=== PATIENT | male | born 2005 | race Caucasian/White ===

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

== ENCOUNTER 2025-06-24 12:08 | Outpatient (REF) | payer MEDICAID, SELFPAY ==
--- NOTE | ~2025-06-24 | XR_ITS ---
EXAMINATION: XR LUMBOSACRAL SPINE CLINICAL INFORMATION: pain at paraspinous muscles COMPARISON: None available. TECHNIQUE: Three views of the lumbosacral spine. FINDINGS: There are vestigial ribs at T12. There is a transitional L5 vertebral body that appears sacralized on the right. Vertebral body height and alignment is preserved. Disc spaces are preserved. No degenerative changes are fractures are evident. XR/XR lumbar spine 2-3V IMPRESSION: Transitional L5 segment. Electronically signed by: John Winters MD 06/24/2025 01:21 PM EDT
--- OUTSIDE RECORDS SUMMARY | 2025-06-24 11:30 | XMS_ITS | Encounter Summary ---
Author Organization [email or web address] Address [address] [place] [address] 7 [place] [address] Care Team Providers Care C++ Professor Name Role Phone Dodie Griffith MD Primary Care Provider [phone] Reason for Visit * Reason Comments sick visit Back pain Encounter Details Date Type Department Care Team (Late st Contact Info) Description 06/24/2025 11:30 AM EDT Office Visit [facility] [address] [place], [place] [phone] Dodie Griffith MD [address] [place] [address] Chronic midline thoracic back pain (Primary Dx) Social History Tobacco Use Types Packs/Day Years Used Date Smoking Tobacco: Never Smokeless Tobacco: Never Alcohol Use Standard Drinks/Week Comments Never 0 (1 standard drink = 0.6 oz pur e alcohol) Depression Answer Date Recorded Patient Health Questionnaire-9 Score 1 11/11/2023 Patient Health Questionnaire-9 Score 1 11/11/2023 Last PHQ-9: Questionnaire Data Not on file 0 11/11/2023 Depression Answer Date Recorded Patient Health Questionnaire-2 Score 0 11/11/2023 Sex and Gender Information Value Date Recorded Sex Assigned at Male 11/11/2023 9:09 AM EST Legal Sex Male 9:06 AM EST Gender Identity Male 11/11/2023 9:12 AM EST Sexual Orientation Straight 06/21/2025 9: 52 AM EDT documented as of this encounter Last Filed Vital Signs Vital Sign Reading Time Taken Comments Blood Pressure 102/60 06/24/2025 11:56 AM EDT Pulse 100 06/24/2025 11:56 AM EDT Temperature 35.9 C (96.7 F) 06/24/2025 11:56 AM EDT Respiratory Rate 20 06/24/2025 11:56 AM EDT Oxygen Saturation - - Inhaled Oxygen Concentration - - Weight 61.4 kg (135 lb 6.4 oz) 06/24/2025 11:56 AM EDT Height 170.2 cm (5' 7 ) 06/24/2025 11:56 AM EDT Body Mass Index 21.21 06/24/2025 11:56 AM EDT documented in this encounter Plan of Treatment Scheduled Orders Name Type Priority Associated Diagnoses Orde r Schedule XR Lumbar Spine 2-3 Views Imaging Routine Chronic midline thoracic back pain Expected: 06/24/2025, Expires: 06/24/2026 documented as of this encounter Visit Diagnoses Diagnosis Chronic midline thoracic back pain- Primary documented in this encounter Additional Health Concerns Assessment Noted Time PHQ-9 Depression Total Score: 1 11/11/19 24 12:13 PM EST documented as of this encounter Care Teams C++ Professor Relationship Specialty Start Date End Date Dodie Griffith MD [address] [place] [address] PCP - General Family Medicine 11/11/23 documented as of this encounter
--- OUTSIDE RECORDS SUMMARY | 2025-06-24 12:54 | XMS_ITS | Encounter Summary ---
Author Organization [employer] Address [address] [place] [address] 7 [place] [address] Care Team Providers Care Lift Driver Name Role Phone Dodie Griffith MD Primary Care Provider [phone] Encounter Details Date Type Department Care Team (Latest Contact Info) Description 06/24/2025 Travel Social History Tobacco Use Types Packs/Day Years [...] AM EDT documented as of this encounter Plan of Treatment Not on file documented as of this encounter Visit Diagnoses Not on filedocumented in this encounter Additional Health Concerns Assessment Noted Time PHQ-9 Depression Total Score: 1 11/11/19 24 12:13 PM EST documented as of this encounter Care Teams Lift Driver Relationship Specialty Start Date End Date Dodie Griffith MD [address] [place] [address] PCP - General Family Medicine 11/11/23 documented as of this encounter
--- OUTSIDE RECORDS SUMMARY | 2025-06-24 12:54 | XMS_ITS | Encounter Summary ---
Author Organization [employer] Address [address] [place] [address] 7 [place] [address] Care Team Providers Care Ornamental Ironworking Supervisor Name Role Phone Dodie Griffith MD Primary Care Provider [phone] Encounter Details Date Type Department Care Team (Latest Contact Info) Description 06/21/2025 Travel Social History Tobacco Use Types Packs/Day [...] documented as of this encounter Care Teams Ornamental Ironworking Supervisor Relationship Specialty Start Date End Date Dodie Griffith MD [address] [place] [address] PCP - General Family Medicine 11/11/23 documented as of this encounter
--- OUTSIDE RECORDS SUMMARY | 2025-06-24 12:54 | XMS_ITS | Clinical Summary ---
Author Organization [employer] Address [address] [place] [address] [place] [address] Care Team Providers Care Seam Checker Name Role Phone Dodie Griffith MD Primary Care Provider Allergies No known active allergies Medications No known medications Active Problems Problem Noted Date Diagnosed Date Encounter for immunization 11/11/2023 Encounter for well child check without abnormal findings 11/11/2023 Chronic midline thoracic back pain 11/11/2023 Encounters Date Type Department Care Team Description 06/24/2025 11:30 AM EDT Office Visit [facility] [address] [place] [phone] Dodie Griffith MD Chronic midline thoracic back pain (Primary Dx) 06/24/2025 Travel 06/21/2025 Travel 06/20/2025 Telephone [facility] [address] [place] [phone] Dodie Griffith MD Nurse Triage 05/31/[address] [address] Dodie Griffith MD Nurse Triage from Last 3 Months Immunizations Immunization Administration Dates Next Due BCG 2005 DTaP 04/13/2007, 6,03/22/2006,01/07 Hep A, ped/adol, 2 dose 11/11/2023 Hep B, Adolescent or Pediatric 01/07/2006,2005,2005 IPV 04/13/2007, 6,2005,11/20 Influenza, Unspecified 07/26/2023 MMR 11/11/2023,07/14/2007 Measles 01/19/2006 Meningococcal Polysaccharide A,C,Y,W-135 TT Conjugate 11/11/2023 OPV, Trivalent 07/17/2023 Pfizer Covid-19 Vaccine 12+ 11/11/2023 Tdap 11/11/2023 Social History Tobacco Use Types Packs/Day Years Used Date Smoking Tobacco: Never Smokeless Tobacco: Never Tobacco Cessation:Counseling Given: No Alcohol Use Standard Drinks/Week Comments Never 0 [...] Orientation Straight 06/21/2025 9: 52 AM EDT Last Filed Vital Signs Vital Sign Reading [...] Mass Index 21.21 06/24/2025 11:56 AM EDT Plan of Treatment Health Maintenance Due Date Last Done Comments Chlamydia and Gonorrhea Screening 2005 HIV Screening 2005 SDOH Screening 2005 Hepatitis B Vaccines (4 of 4 - 4-dose series) 04/26/2006 01/07/2006, 2005, 2005 Fluoride Varnish 06/27/2006 Alcohol/Substance Use Screening 2017 Family Planning (PISQ) 2020 HPV Vaccines (1 - Male 3-dose series) 2020 Meningococcal B Vaccine (1 of 2 - Standard) 2021 Hepatitis C Screening 2023 Hepatitis A Vaccines (2 of 2 - 2-dose series) 05/11/2024 11/11/2023 COVID-19 Vaccine (2 - season) 2024 11/11/2023 Depression Screening 11/11/2024 11/11/2023, 11/11/19 24 Tobacco Screening 11/11/2024 11/11/2023 Influenza Vaccine (#1) 2025 07/26/2023 Disability Screening 06/21/2026 06/21/2025 DTaP/Tdap/Td Vaccines (6 - Td or Tdap) 11/11/2033 11/11/2023, 04/13/2007, 05/08/2006, Additional history exists Zoster Vaccines (1 of 2) 2055 RSV Patients and Patients Aged 60 years or older (1 - 1-dose 75+ series) 2080 IPV Vaccines Completed 07/17/2023, 03/27, 01/20/2006, Additional history exists MMR Vaccines Completed 11/11/2023, 07/14/2007 Meningococcal Vaccine Completed 11/11/2023 HIB Vaccines Aged Out No longer eligi ble based on patient's age to complete this topic Pneumococcal Vaccine: Pediatrics (0 to 5 Years) and At-Risk Patients (6 to 49) Years Aged Out No longer eligible based on patient's age to complete this topic RSV under 20 months Aged Out No longe r eligible based on patient's age to complete this topic Rotavirus Vaccines Aged Out No longer eligible based on patient's age to complete this topic Varicella Vaccines Discontinued Insurance [facility] [employer] Care Teams Seam Checker Relationship Specialty Start Date End Date Dodie Griffith MD [address] [place] [address] PCP - General Family Medicine 11/11/23
--- OUTSIDE RECORDS SUMMARY | 2025-06-24 12:54 | XMS_ITS | Encounter Summary ---
Author Organization [employer] Address [address] [place] [address] [address], [place] [address] Care Team Providers Care Java Developer Name Role Phone Dodie Griffith MD Primary Care Provider [phone] Reason for Visit * Reason Onset Date Comments Nurse Triage 06/20/2025 Encounter Details Date Type Department Care Team ([facility] st Contact Info) Description 06/20/2025 Telephone [facility] [address] [place], [place] [phone] Dodie Griffith MD [address] [place], [place] [phone] Nurse Triage Social History Tobacco Use Types Packs/Day Years [...] AM EDT documented as of this encounter Miscellaneous Notes * Telephone Encounter - Chloe Worrell RN - 06/20/2025 11:25 AM EDT Call returned to [facility] Malcolmkings Mendez to triage below at [phone]. Reports having ongoing chronic back pain. Pt alessia any use of OTC pain relievers or PT. Pt dnies any leg pain, numbness or worsening. Pt wants PCPfollow up. Pt advised that needs to make sure MH is C3 Standard. Pt booked with PCP. Protocol Used: Back Pain (Adult) Protocol-Based Disposition: See in Office or Video Visit within 2 Weeks Future Appointments Date Time Provider Department Center 06/24/2025 11:30 AM Dodie Griffith MD [facility] Insurance verified as active per Real Time Eligibility in [employer]. Video visit offer not recorded Positive Triage Question: * Back pain is a chronic symptom (recurrent or ongoing AND lasting > 4 weeks) * All higher-acuity triage questions were negative Care Advice Discussed: * Reassurance and Education - Back Pain * Cold or Heat * Sleep * Continue Activity * Pain Medicines * Reasons To Call Back - Severe pain not better after taking pain medicines - Moderate pain (interferes with normal activities) lasts over 3 days - Fever occurs - You become worse * Telephone Encounter - Dre Duque - 06/20/2025 11:11 AM EDT Symptom: Back Pain - Not From Injury Outcome: Schedule an appointment to be seen within 3 days Reason: Caller denied all higher acuity questions Please contact pt at [phone]. documented in this encounter Plan of Treatment Not on file documented as of this encounter Visit Diagnoses Not on filedocumented in this encounter Additional Health Concerns Assessment Noted Time PHQ-9 Depression Total Score: 1 11/11/19 24 12:13 PM EST documented as of this encounter Care Teams Java Developer Relationship Specialty Start Date End Date Dodie Griffith MD [address] [place] [phone] PCP - General Family Medicine 11/11/23 documented as of this encounter
== END 2025-06-24 12:09 | disposition home or self-care (01) ==
LOC: HO.HHCX 12:08
PROVIDERS: PCP General Practice; Visit Provider General Practice
DX: M54.6 Pain in thoracic spine (principal); G89.29 Other chronic pain
CPT/HCPCS: 72100

== ENCOUNTER → 2025-06-24 12:16 | Outpatient (BNV) | payer MEDICAID, SELFPAY | PROVIDERS: PCP General Practice; Visit Provider Radiology Diagnostic Radiology | DX: M54.50 Low back pain, unspecified (principal) | CPT/HCPCS: 72100 ==